=== PATIENT | male | born 1990 | race Caucasian/White ===

== ENCOUNTER 2024-07-31 20:04 | Emergency (ER) | payer SELFPAY ==
[2024-07-31 20:06] VITALS: BP 161/88
--- NOTE | 2024-07-31 21:40 | ED.GENMED ---
History of Present Illness
General
Chief Complaint: Wound Check/Suture Removal
Source: patient
Exam Limitations: none
Time Seen by Provider: 07/31/24 20:39
Nursing documentation reviewed up to this point in time: agreed with
History of Present Illness
History of Present Illness:
Patient to ED for eval of wound to left 4th finger. He sustained a crush injury to finger 2 days ago. Had sutures placed at another facility. Came to ED tonight because skin edges appear to be due to swelling. No discharge fromwound.
Sutures are intact. Here for wound assessment.
Past History
Past History
ED Past Medical History: Other (Drug abuse)
ED Past Surgical History: None
Social History
Tobacco: Non-smoker
Alcohol: None
Drug: None
Review of Systems
Review of Systems
Allergies reviewed?: Yes
All Other Systems: ROS reviewed and negative except as documented in HPI and ROS
Constitutional: Reports no symptoms
Musculoskeletal: Reports joint pain (pain to left 4th finger)
Skin: Reports other (Laceration repair to left 4th finger. Sutures intact. )
Neurological: Reports no symptoms
Psychiatric: Reports no symptoms
Phy Exam
General Physical Exam
General Presentation: well appearing and no apparent distress
General age: appears stated age
General Skin: warm and dry
General Habitus: normal
Musculoskeletal Exam
Musculoskeletal Exam: full ROM and neuro vasc intact
Skin Exam
Skin Exam: normal color, warm/dry, no rash and other (Sutures intact to laceration repair left distal 4th finger. Swelling to site and skin edges causing sutures to stretch. No evidence of infection. He is currently taking Keflex QID.)
Psychiatric Exam
Psychiatric Exam: normal mood/affect
Course
Vital Signs
Initial and Last Documented VS:
Initial Vital Signs
Temp Pulse Resp BP Pulse Ox
98.4 F 70 18 161/88 98
07/31/24 20:06 07/31/24 20:06 07/31/24 20:06 07/31/24 20:06 07/31/24 20:06
Last Documented Vital Signs
Temp Pulse Resp BP Pulse Ox
98.4 F 70 18 161/88 98
07/31/24 20:06 07/31/24 20:06 07/31/24 20:06 07/31/24 20:06 07/31/24 20:06
*Critical Care Note
Total Time (30-74mins, 75-104mins- exclusive of procedures): Not Applicable
Update Note
Update Note:
Sutures are intact to left distal 4th finger but have stretched due to swelling. No evidence of infection. REcommend soaking finger BID, daily wound care with soap, water, light layer of antibiotic ointment. He is discharged home and will follow
up with PCP. Given instructions on s/s to return to ED and he is agreeable to plan.
ED Attending Note
-
Portions of this chart may have been created with voice recognition software.� Occasional wrong word or��sound alike� substitutions may have occurred due to the inherent limitations of voice recognition software.
Discharge Plan
Departure
Patient Disposition: Home (Routine Discharge)
Date of Disposition: 07/31/24
Time of Disposition: 21:15
Patient with high blood pressure during this ER visit?: No
Condition: Good
Covid-19: Not Applicable
Discharge Problem:
Visit for wound check
Instructions: Wound Care (DC), Stitches and jeferson
Prescriptions:
No Action
No Current Medications
0
Referrals:
Nicho Elena, DO [Family Provider] - Follow up in 2-3 days
Activity Restrictions/Additional Instructions:
Return to the emergency department immediately for fever/chills, increasing pain/redness/swelling to your finger, or for any further concerns.
Interventions
Interventions:
*Risk Screen - Suicide Last Done: 07/31/24 20:06
*General Assessment Last Done: 07/31/24 20:06
*Neglect/Abuse Screening Last Done: 07/31/24 21:12
*ED- Fall Risk Assessment Last Done: 07/31/24 20:06
*ED COVID-19 Vaccine History Last Done: 07/31/24 20:06
*Nursing Disposition Last Done: 07/31/24 21:28
ED-Skin Assessment Last Done: 07/31/24 21:12
Discharge Date and Time
Discharge Date/Time: 07/31/24 21:29
Print Language: NAMIBIAN
== END 2024-07-31 21:29 | disposition home or self-care (01) ==
LOC: EMR 20:04
PROVIDERS: EMERGENCY PHYSICIAN Student in an Organized Health Care Education/Training Program; FAMILY PHYSICIAN Family Medicine
DX: Z48.00 Encounter for change or removal of nonsurgical wound dressing (principal)
CPT/HCPCS: 99282